=== PATIENT | female | born 2000 | race Caucasian/White ===

== ENCOUNTER 2022-04-20 02:08 | Emergency (ER) | payer MEDICAID ==
[~2022-04-20] VITALS: Ht 162.6 cm; Wt 73.0 kg
[2022-04-20] MEDS ORDERED: ALBUTEROL (0.5%) 2.5MG/0.5ML NEB HHN ONE (04:00)
[2022-04-20] MEDS ORDERED: IPRATROPIUM BROMIDE (0.02%) 0.5MG/2.5ML NEB HHN ONE (04:00)
[2022-04-20] MEDS ORDERED: PREDNISONE 20MG TABLET PO ONE (04:30)
[2022-04-20] MEDS ORDERED: ALBU05 NEB (04:50)
[2022-04-20] MEDS ORDERED: ALBU6.7H3 INH (04:50)
[2022-04-20] MEDS ORDERED: P20 MT (04:50)
[2022-04-20 05:39] VITALS: BP 131/74
== END 2022-04-20 05:42 | disposition home or self-care (01) ==
LOC: ER 02:08
DX: J45.901 Unspecified asthma with (acute) exacerbation (principal); D64.9 Anemia, unspecified
CPT/HCPCS: 93005; 94640; 99283; J7512; Z7610